=== PATIENT | male | born 1980 | race Caucasian/White ===

== ENCOUNTER 2017-11-07 08:28 | Emergency (ER) | payer MEDICAID ==
[~2017-11-07] VITALS: Ht 177.8 cm; Wt 78.5 kg
[~2017-11-07 08:28] MED LIST: PROMETHAZINE HC50 MG PO; VICODIN 5-5001 EACH PO; XALATAN2.5 ML OP
[2017-11-07] MEDS ORDERED: CLEOCIN HCL300 MG PO (09:40)
[2017-11-07] MEDS ORDERED: IBUPROFEN600 MG PO (09:40)
== END 2017-11-07 10:20 | disposition home or self-care (01) ==
LOC: ED 08:28
PROC: 0H9AXZZ Drainage of Inguinal Skin, External Approach (ICD-10-PCS; principal; 2017-11-07)
DX: L02.214 Cutaneous abscess of groin (principal); F17.200 Nicotine dependence, unspecified, uncomplicated
CPT/HCPCS: 10060; 99283